=== PATIENT | male | born 2000 | race African-American/Black ===

== ENCOUNTER 2023-01-07 22:50 | Emergency (ER) | payer SELFPAY | END 2023-01-08 01:05 | disposition home or self-care (01) | LOC: CSHERS 22:50 | DX: B34.9 Viral infection, unspecified (principal); F17.210 Nicotine dependence, cigarettes, uncomplicated; Z20.822 Contact with and (suspected) exposure to COVID-19 | CPT/HCPCS: 99283 ==

== ENCOUNTER 2023-07-03 18:51 | Emergency (ER) | payer SELFPAY | END 2023-07-03 19:52 | disposition left against medical advice (07) | LOC: CSHERS 18:51 | DX: Z53.21 Procedure and treatment not carried out due to patient leaving prior to being seen by health care provider (principal) ==

== ENCOUNTER 2023-07-03 20:56 | Emergency (ER) | payer SELFPAY | END 2023-07-03 22:42 | disposition home or self-care (01) | LOC: CSHERS 20:56 | DX: L60.1 Onycholysis (principal) | CPT/HCPCS: 99283 ==